=== PATIENT | female | born 1980 | race Caucasian/White ===

== ENCOUNTER 2025-04-03 08:48 | Emergency (ER) | payer OTHER, SELFPAY ==
[2025-04-03 08:49] VITALS: BP 130/77; PULSE 81; RESP 18; TEMP 36.8; O2SAT 97; BMI 34.7
--- NOTE | 2025-04-03 09:28 | VDLE_ITS ---
Reason For Study Reason For Study: Left leg pain RIGHT LEFT CFV is compressible, spontaneous, phasic, competent GSV is normal. and demonstrates normal augmentation. CFV is compressible, spontaneous, phasic, competent, Procedure and demonstrates normal augmentation. This is a venous duplex using B-mode, color flow and FV is compressible, spontaneous, phasic, competent spectral Doppler. and demonstrates normal augmentation. Exam performed portable in ED. POP V is compressible, spontaneous, phasic, competent A preliminary report was called and/or faxed to and demonstrates normal augmentation. Nora. T/P Trunk is compressible. PTV is compressible. LT PerV is compressible. VL/Venous Duplex US, Unilateral Interpretation Summary Deep veins of the left lower extremity are patent and compressible segmentally. There is no evidence of left lower extremity deep vein thrombosis. The left great saphenous vein appears patent an d compressible segmentally. Ordering Physician: Jayesh Melendez Performed By: Stephanie Tapia RVT
--- NOTE | 2025-04-03 09:39 | EX.ED.DYSGE1 ---
HPI History of Present Illness Chief Complaint: Lower Extremity Injury Narrative Narrative: Chief complaint and HPI: Left lower calf pain. 44-year-old female presents for evaluation of left lower calf pain. Patient states that she has a known Huerta's cyst of the left knee. States he occasionally gets pain and swelling in this area. States for the past 2 weeks she has been having intermittent pain in the area as well as into the calf muscle. She states she usually does not have pain in the calf. She has a family history of blood clots. She denies any fever, chills, shortness of breath, chest pain. States she wants to make sure she does not have a DVT. She denies any warmth or swelling. Review of systems: See HPI Medications: As listed on the chart Allergies: As listed on the chart PFSH: Per chart Vital signs: As listed on the chart. Reviewed. Physical exam: Gen: A&O x3, NAD Head: Normocephalic, atraumatic Eyes: No sclera icterus, conjunctiva clear ENT: Moist mucous membranes CV: RRR, no murmurs Resp: Lungs CTA BL, no w/r/c Musc: Full ROM, no deformity, bilateral lower extremities without swelling/erythema/warmth/induration/fluctuance, mild tenderness to palpation of the left calf, femoral/DP/PT +2 bilaterally, good capillary refill, compartments soft Skin: Warm, dry Neuro: Alert, oriented, grossly intact, sensation intact Psych: Cooperative, appropriate mood and affect [facility] Medications ?Medication ?Instructions ?Recorded ?Last Taken ?Type No Known/Unobtainable [No Known 10/21/13 Unknown History Home Medications] Allergy/AdvReac Type Severity Reaction Status Date / Time No Known Allergies Allergy Verified 04/03/25 08:51 Social History Smoking Status: Never smoker EXAM Physical Exam Const Vital Signs: 04/03/25 08:49 Temperature 98.3 F Temperature Source Oral Pulse Rate 81 Respiratory Rate 18 Blood Pressure 130/77 H Blood Pressure Mean 94 Pulse Ox 97 Oxygen Delivery Method Room Air MDM MDM MDM Narrative Medical decision making narrative: 44-year-old female presents for evaluation of left lower calf pain. Patient states that she has a known Huerta's cyst of the left knee. States he occasionally gets pain and swelling in this area. States for the past 2 weeks she has been having intermittent pain in the area as well as into the calf muscle. She states she usually does not have pain in the calf. She has a family history of blood clots. On chart review, I do not have a previous ultrasound showing a Huerta's cyst. Patient states however she was told by an orthopedic surgeon that she has one. Physical exam is unremarkable except for mild tenderness in the left calf without swelling or signs of infection. Differential diagnosis includes but is not limited to myofascial spasm, symptomatic Huerta's cyst, DVT. Duplex venous ultrasound ordered. Venous duplex ultrasound negative for DVT. No Huerta's cyst visualized. At this point in time, no clear etiology for patient's left calf pain. Suspect myofascial spasm versus strain. Follow-up with primary care physician. Tylenol and ibuprofen as needed for pain. She confirmed understand the plan. Patient stable to discharge home. Impression: 1. Left calf pain 2. Reported history of left Huerta's cyst Discharge Plan Triage Chief Complaint: Lower Extremity Injury ED Provider: Jayesh Melendez Dx/Rx/DC Orders Prescriptions: No Action No Known Home Medications Primary Care Provider: Care Physician,No Primary Referrals: Care Physician,No Primary [Primary Care Provider] - Print Language: Pashto
[2025-04-03 10:50] VITALS: BP 128/74; PULSE 79; RESP 16; TEMP 36.7; O2SAT 100
== END 2025-04-03 10:51 | disposition home or self-care (01) ==
PROVIDERS: Emergency Provider Surgery; Visit Provider Surgery
DX: M79.662 Pain in left lower leg (principal); M71.22 Synovial cyst of popliteal space [Baker], left knee
CPT/HCPCS: 93971; 99282